=== PATIENT | female | born 1995 | race Caucasian/White ===

== ENCOUNTER 2018-02-18 21:22 | Emergency (ER) | payer OTHER ==
[2018-02-18] MEDS: LIDOCAINE 2% (MDV) 20 ML INJ INJ (22:58)
== END 2018-02-19 00:23 | disposition home or self-care (01) ==
LOC: FTE 02-19 00:23
DX: N76.4 Abscess of vulva (principal); J45.909 Unspecified asthma, uncomplicated
CPT/HCPCS: 56405; 99284-25

== ENCOUNTER 2019-04-01 07:52 | Emergency (ER) | payer OTHER | END 2019-04-01 08:49 | disposition home or self-care (01) | LOC: FTE 08:49 | DX: L02.214 Cutaneous abscess of groin (principal); J45.909 Unspecified asthma, uncomplicated | CPT/HCPCS: 10060; 99283-25 ==